=== PATIENT | male | born 1960 | race Caucasian/White ===

== ENCOUNTER 2017-03-12 12:07 | Emergency (ER) | payer SELFPAY ==
--- NOTE | 2017-03-12 13:00 | Emergency Department Record ---
History of Present Illness - General Chief complaint: Head Injury Stated complaint: INJURY TO TOP OF HEAD HIT A PIPE VENT Time Seen by Provider: 03/12/17 13:00 Source: Patient Mode of Arrival: Ambulatory Limitations: No limitations Travel/Exposure to [facility] Within 21 Days of Symptoms: No - History of Present Illness Initial comments: The patient is here due to persistent head and neck pain since hitting his head on a pipe at work a week ago. He believes he did hit it very hard and since has had quite a severe headache and diffuse neck pain. The patient denies any visual changes, balance issues or weakness. He has been working and driving since the injury with no difficulty and taking Tylenol for pain. MD Complaint: Head pain Onset/Timin -: Days(s) Mechanism of Injury: Work related injury Location: Occipital Loss of Consciousness: No Previous Trauma to this Area: No Place: Work Radiation: Neck Severity: Moderate Severity scale (1-10): 8 Quality: Other Consistency: Constant, Getting worse Other Injuries: None Associated Symptoms: Neck pain - Related Data Previous Rx's Medication Instructions Recorded Cephalexin [Keflex] 500 mg PO QID #20 cap 01/17/15 Naproxen [Naprosyn] 500 mg PO BID #14 tablet. 03/12/17 Allergies/Adverse reactions: Allergies Allergy/AdvReac Type Severity Reaction Status Date / Time No Known Drug Allergies Allergy Verified 01/17/15 11:28 Travel Screening - Travel/Exposure Within Last 30 Days Have you traveled within the last 30 days?: No - Travel/Exposure Within Last Year Have you traveled outside the [place] in the last year?: No - Additonal Travel Details Have you been exposed to anyone with a communicable illness?: No Review of Systems Constitutional: Denies: Chills, Fever Eyes: Denies: Eye discharge ENT: Denies: Congestion Respiratory: Denies: Cough, Dyspnea Past Medical History - SOCIAL HISTORY Smoking Status: Former smoker Alcohol Use: None Drug Use: None - RESPIRATORY Hx Respiratory Disorders: No - CARDIOVASCULAR Hx Cardio Disorders: No - NEURO Hx Neuro Disorders: No - GI Hx GI Disorders: No - Hx Genitourinary Disorders: No - ENDOCRINE Hx Endocrine Disorders: No - MUSCULOSKELETAL Hx Musculoskeletal Disorders: No - PSYCH Hx Psych Problems: No - HEMATOLOGY/ONCOLOGY Hx Hematology/Oncology Disorders: No Family Medical History Any Significant Family History?: No Physical Exam - General General Appearance: Alert, Oriented x3, Cooperative, No acute distress - Head Head exam: Normocephalic. negative: Atraumatic, Normal inspection (There is a healing abrasion to the top of the head.) - Eye Eye exam: Normal appearance, PERRL - ENT ENT exam: Normal exam, Mucous membranes moist, Normal external ear exam, Normal orophraynx, TM's normal bilaterally Throat exam: Normal inspection. negative: Tonsillar erythema, Tonsillar exudate - Neck Neck exam: Normal inspection, Full ROM. negative: Tenderness - Respiratory Respiratory exam: Normal lung sounds bilaterally. negative: Respiratory distress - Cardiovascular Cardiovascular Exam: Regular rate, Normal rhythm, Normal heart sounds - GI/Abdominal GI/Abdominal exam: Soft, Normal bowel sounds. negative: Tenderness - Extremities Extremities exam: Normal inspection, Full ROM, Normal capillary refill. negative: Tenderness - Neurological Neurological exam: Alert, Normal gait, Oriented X3, Other (Neg Drift and [place].). negative: Abnormal gait, Altered, Motor sensory deficit Course Vital Signs 03/12/17 12:43 Temperature 97.8 F Pulse Rate 91 H Respiratory 16 Rate Blood Pressure 145/98 Pulse Ox 95 - Reevaluation(s) Reevaluation #1: The patient is doing well. He again denies any arm or leg numbness, tingling or weakness. He still has the GONG but does not want anything for pain. I did explain the xray results to him and the need for F/U with his PCP. 03/12/17 14:06 Medical Decision Making - Data Complexity MDM Data: X-Ray Ordered and/or Reviewed - Radiology Data Radiology results: Report reviewed (Head CT: Neg Cervical CT: DJD, Mod central canal stenosis C3-4. ) Disposition Disposition: Discharge Clinical Impression: Concussion Qualifiers: Encounter type: initial encounter Loss of consciousness presence/duration: without LOC Qualified Code(s): S06.0X0A - Concussion without loss of consciousness, initial encounter Disposition: Home, Self-Care Condition: (1) Good Instructions: Concussion (ED) Additional Instructions: Please take the Naprosyn for pain and F/U with your PCP early next week to recheck the Concussion and the neck degenerative dz. Please return to the ER for any increased pain, fever, confusion, weakness, balance issues or vomiting. Prescriptions: Naproxen [Naprosyn] 500 mg PO BID #14 tablet.dr Forms: Patient Portal Access Time of Disposition: 14:09 Quality - Quality Measures Quality Measures: N/A - Blood Pressure Screening View Details: Yes Does Patient Have Any of the Following: No Blood Pressure Classification: Pre-Hypertensive BP Reading Systolic Measurement: 125 Diastolic Measurement: 89 Screening for High Blood Pressure: < Pre-Hypertensive BP, F/U Documented > [ G8950] Pre-Hypertensive Follow-up Interventions: Referral to alternative/primary care provider.
--- NOTE | 2017-03-14 12:10 | CT SCAN REPORT ---
EXAM: CT SCAN HEAD WO CONTRAST HISTORY: STRUCK ON TOP OF THE HEAD, WORSENING HEADACHE FOR ONE WEEK. NO LOSS OF CONSCIOUSNESS. COMPARISON: Head CT 10/01/09. ENCOUNTER: Initial. TECHNIQUE: Contiguous axial images from the cerebral convexities to the foramen magnum were obtained without contrast. FINDINGS: Brain volume is normal. No acute intracranial hemorrhage, mass effect , or midline shift. No CT evidence of acute infarct. Cavum septum pellucidum, basal cisterns, and sulci are normal. No skull fracture. Soft tissues and paranasal sinuses are unremarkable. IMPRESSION: NO ACUTE INTRACRANIAL PROCESS. JOB NUMBER: [id number] [facility]
--- NOTE | 2017-03-14 12:21 | CT SCAN REPORT ---
EXAM: CT SCAN CERVICAL SPINE WO CONTRAST HISTORY: STUCK TOP OF HEAD ONE WEEK AGO, CHRONIC NECK PAIN. COMPARISON: None. TECHNIQUE: Contiguous axial images from the skull base to the T3 level were obtained without contrast. Sagittal and coronal two-dimensional reformatted images were obtained for better anatomic delineation. FINDINGS: Anatomic alignment of the cervical spine. C1-C2 articulation appears appropriate and the odontoid is intact. No fracture or subluxation. Moderate degenerative disc disease at C5-6 manifested by loss of stature and endplate osteophytes. Mild disc disease of remaining levels. C2-3: Unremarkable. C3-4: There is a central disc extrusion measuring 4 mm in AP dimension, by 7 mm broad extending 7 mm cephalad to the disc level. There is moderate central canal stenosis with the thecal sac measuring 7 mm in AP dimension. Mild right and moderate to severe left neural foraminal stenosis. C4-5: Borderline central canal stenosis with the thecal sac measuring 10 mm in AP dimension. No neural foraminal stenosis. C5-6: Mild central canal stenosis with the thecal sac measuring 9 mm in AP dimension. There is uncovertebral joint hypertrophy with moderate right and moderate to severe left neural foraminal stenosis. C6-7: No central canal stenosis. Facet arthropathy. No neural foraminal stenosis. C7-T1: Unremarkable. Soft tissues of the cervical region are unremarkable. The lung apices are clear. IMPRESSION: 1. NO ACUTE FRACTURE OR SUBLUXATION OF THE CERVICAL SPINE. 2. PROBABLE DEVELOPMENTAL NARROWING OF THE MID CERVICAL SPINAL CANAL WITH SUPERIMPOSED DEGENERATIVE CHANGE. THERE APPEARS TO BE A DISC EXTRUSION EXTENDING 7 MM CEPHALAD TO THE DISC LEVEL PRODUCING MODERATE CENTRAL CANAL STENOSIS AT THIS LEVEL. 3. MILD CENTRAL CANAL STENOSIS AT C5-6. 4. VARYING DEGREES OF NEURAL FORAMINAL STENOSIS, ABOVE. JOB NUMBER: [id number] [facility]
== END 2017-03-12 14:27 | disposition home or self-care (01) ==
LOC: ER 12:07
DX: S06.0X0A Concussion without loss of consciousness, initial encounter (principal); R51 Headache; M54.2 Cervicalgia; W22.8XXA Striking against or struck by other objects, initial encounter; Y92.89 Other specified places as the place of occurrence of the external cause; Y99.0 Civilian activity done for income or pay
CPT/HCPCS: 70450; 72125; 99283; 99284

== ENCOUNTER 2017-05-20 15:40 | Emergency (ER) | payer BC, OTHER ==
[2017-05-20 16:25] LABS: BASO % 0.2 % (0-6); EOS % 2.8 % (0-6); GRAN % 64.2 % (47-80); HEMATOCRIT 48.1 % (42.0-52.0); HEMOGLOBIN 16.6 gm/dl (14.0-18.0); LYMPH % 22.9 % (16-45); MEAN CELL VOLUME 83.1 fl (81-97); MEAN CORPUSCULAR HGB CONC 34.5 g/dl (32-36); MEAN PLATELET VOLUME 9.4 fl (7.4-10.4); MONO % 9.9 % (0-9); PLATELET COUNT 224 K/uL (130-400); RED BLOOD COUNT 5.79 M/uL (4.40-5.70); RED CELL DISTRIBUTION WIDTH 13.9 % (11.5-14.5); WHITE BLOOD COUNT W/O DIFF 6.4 K/uL (4.2-12.2)
[2017-05-20 16:26] LABS: MEAN CORPUSCULAR HEMOGLOBIN 28.6 pg (27-33)
[2017-05-20 16:31] LABS: BLOOD UREA NITROGEN 13 mg/dL (6-20); CREATININE 0.7 mg/dL (0.7-1.2); EST GLOMERULAR FILTRATION RATE > 60 mL/min
--- NOTE | 2017-05-20 16:32 | Emergency Department Record ---
History of Present Illness - General Chief Complaint: Dizziness Stated Complaint: LIGHT HEADED,CONFUSION, THROAT FEELS TIGHT Time Seen by Provider: 05/20/17 16:08 Source: Patient Mode of Arrival: Ambulatory Limitations: No limitations - History of Present Illness Initial Comments: pt had a concussion a few months ago. since then he has had various symptoms including headaches and difficulty w memory. he has had recent neg dopplers and head and neck mri. he had a neg ct in oct when he had the injury. today he came in because he felt he was increasingly confused and was forgetful and felt he had some tingling in his r face. 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 Complaint: Dizziness, Lightheadedness -: Unknown Description: Lightheadedness History of Same: Yes History of Trauma: Yes Severity: Mild Improves With: Nothing Worsens With: Nothing Associated Symptoms: Denies other symptoms - Ed Coma Scale Eye Response: (4) Open spontaneously Motor Response: (6) Obeys commands Verbal Response: (5) Oriented [place] Total: 15 - Symptoms of Stroke Symptoms of stroke: Dizziness - Related Data Previous Rx's Medication Instructions Recorded Cephalexin [Keflex] 500 mg PO QID #20 cap 01/17/15 Naproxen [Naprosyn] 500 mg PO BID #14 tablet. 03/12/17 Allergies Allergy/AdvReac Type Severity Reaction Status Date / Time No Known Drug Allergies Allergy Verified 05/20/17 15:47 Travel Screening - Travel/Exposure Within Last 30 Days Have you traveled within the last 30 days?: No - Travel/Exposure Within Last Year Have you traveled outside the [place] in the last year?: Yes Location Detail:: [place] - Additonal Travel Details Have you been exposed to anyone with a communicable illness?: No - Travel Symptoms Symptom Screening: None Review of Systems Reviewed: No additional complaints except as noted below Constitutional: Reports: As per HPI. Denies: Chills, Fever, Malaise, Night sweats, Weakness, Weight change Eyes: Reports: As per HPI. Denies: Eye discharge, Eye pain, Photophobia, Vision change ENT: Reports: As per HPI. Denies: Congestion, Dental pain, Ear pain, Epistaxis , Hearing loss, Throat pain Respiratory: Reports: As per HPI. Denies: Cough, Dyspnea, Hemoptysis, Stridor, Wheezes Cardiovascular: Reports: As per HPI. Denies: Arrhythmia, Chest pain, Dyspnea on exertion, Edema, Murmurs, Orthopnea, Palpitations, Paroxysmal nocturnal dyspnea, Rheumatic Fever, Syncope Endocrine: Reports: As per HPI. Denies: Fatigue, Heat or cold intolerance, Polydipsia, Polyuria Gastrointestinal: Reports: As per HPI. Denies: Abdominal pain, Constipation, Diarrhea, Hematemesis, Hematochezia, Melena, Nausea, Vomiting Genitourinary: Reports: As per HPI. Denies: Dysuria, Frequency, Hematuria, Incontinence, Retention, Testicular pain, Testicular mass, Urgency Musculoskeletal: Reports: As per HPI. Denies: Arthralgia, Back pain, Gout, Joint swelling, Myalgia, Neck pain Skin: Reports: As per HPI. Denies: Bruising, Change in color, Change in hair/ nails, Lesions, Pruritus, Rash Neurological: Reports: As per HPI. Denies: Abnormal gait, Confusion, Headache, Numbness, Paresthesias, Seizure, Tingling, Tremors, Vertigo, Weakness Psychiatric: Reports: As per HPI. Denies: Anxiety, Auditory hallucinations, Depression, Homicidal thoughts, Suicidal thoughts, Visual hallucinations Hematological/Lymphatic: Reports: As per HPI. Denies: Anemia, Blood Clots, Easy bleeding, Easy bruising, Swollen glands Past Medical History - SOCIAL HISTORY Smoking Status: Former smoker Alcohol Use: None Drug Use: None - RESPIRATORY Hx Respiratory Disorders: No - CARDIOVASCULAR Hx Cardio Disorders: No - NEURO Hx Neuro Disorders: No - GI Hx GI Disorders: No - Hx Genitourinary Disorders: No - ENDOCRINE Hx Endocrine Disorders: No - MUSCULOSKELETAL Hx Musculoskeletal Disorders: No - PSYCH Hx Psych Problems: No - HEMATOLOGY/ONCOLOGY Hx Hematology/Oncology Disorders: No Family Medical History Any Significant Family History?: Yes Family Hx Comment (NOT TO BE USED IN PLACE OF ITEMS BELOW): Dad [employer] Hx Diabetes: Father Hx Heart Disease: Mother Physical Exam - General General Appearance: Alert, Oriented x3, Cooperative, Mild distress - Head Head exam: Normal inspection - Eye Eye exam: Normal appearance, PERRL, EOMI Pupils: Normal accommodation - ENT ENT exam: Normal exam, Mucous membranes moist, Normal external ear exam, Normal orophraynx Ear exam: Normal external inspection. negative: External canal tenderness Nasal Exam: Normal inspection. negative: Discharge, Sinus tenderness Mouth exam: Normal external inspection, Tongue normal Teeth exam: Normal inspection. negative: Dental caries Throat exam: Normal inspection. negative: Tonsillar erythema, Tonsillar exudate - Neck Neck exam: Normal inspection, Full ROM. negative: Tenderness - Respiratory Respiratory exam: Normal lung sounds bilaterally. negative: Respiratory distress - Cardiovascular Cardiovascular Exam: Regular rate, Normal rhythm, Normal heart sounds - GI/Abdominal GI/Abdominal exam: Soft, Normal bowel sounds. negative: Tenderness - Rectal Rectal exam: Deferred - exam: Deferred - Extremities Extremities exam: Normal inspection, Full ROM, Normal capillary refill. negative: Tenderness - Back Back exam: Reports: Normal inspection, Full ROM. Denies: Muscle spasm, Rash noted, Tenderness - Neurological Neurological exam: Alert, Normal gait, Oriented X3, Other (bells palsy on r side of face) - Psychiatric Psychiatric exam: Normal affect, Normal mood - Skin Skin exam: Dry, Intact, Normal color, Warm Course Vital Signs 05/20/17 15:47 Temperature 98.2 F Pulse Rate 94 H Respiratory 18 Rate Blood Pressure 161/104 Pulse Ox 97 Medical Decision Making - Lab Data Result diagrams: 05/20/17 16:10 05/20/17 16:10 Lab Results 05/20/17 Range/Units 16:10 WBC 6.4 (4.2-12.2) K/uL RBC 5.79 H (4.40-5.70) M/uL Hgb 16.6 (14.0-18.0) gm/dl Hct 48.1 (42.0-52.0) % MCV 83.1 (81-97) fl MCH 28.6 (27-33) pg MCHC 34.5 (32-36) g/dl RDW 13.9 (11.5-14.5) % Plt Count 224 (130-400) K/uL MPV 9.4 (7.4-10.4) fl Gran % 64.2 (47-80) % Lymphocytes % 22.9 (16-45) % Monocytes % 9.9 H (0-9) % Eosinophils % 2.8 (0-6) % Basophils % 0.2 (0-6) % Disposition Disposition: Discharge Clinical Impression: Postconcussive syndrome Disposition: Home, Self-Care Condition: (1) Good Instructions: Post Concussion Syndrome (ED) Additional Instructions: follow up with family doctor and with neurologist and concussion clinic. return sooner if worse Forms: Patient Portal Access Quality - Quality Measures Quality Measures: N/A - Blood Pressure Screening Does Patient Have Any of the Following: No Blood Pressure Classification: Hypertensive Reading Systolic Measurement: 161 Diastolic Measurement: 104 Screening for High Blood Pressure: < First Hypertensive BP, F/U Documented > [ G8950] First Hypertensive Follow-up Interventions: Follow-up with rescreen GT 1 day and LT 4 weeks.
[2017-05-20 16:34] LABS: GLUCOSE,RANDOM 108 mg/dL (74-109)
[2017-05-20 17:05] LABS: ERYTHROCYTE SEDIMENTATION RATE 2 mm/hr (0-20)
--- NOTE | 2017-05-21 07:59 | CT SCAN REPORT ---
EXAM: CT SCAN OF THE BRAIN WITHOUT CONTRAST HISTORY: STROKE LIKE SYMPTOMS. LIGHTHEADEDNESS AND CONFUSION. TECHNIQUE: Standard CT imaging of the brain was performed without contrast. Comparison: 03/12/17. Encounter: Not applicable. FINDINGS: The brain volume is normal. An incidental cavum septum pellucidum variant is present. The ventricles and subarachnoid spaces are otherwise normal. There is no mass, mass effect, intracranial hemorrhage, visible acute infarct, or abnormal extraaxial fluid. The skull is intact. The orbits, sinuses, and mastoids are normal. IMPRESSION: NEGATIVE NONCONTRAST HEAD CT. JOB [facility]BER: [id number] [facility]
--- NOTE | 2017-05-21 08:05 | CT ANGIOGRAM REPORT ---
EXAM: CT ANGIOGRAM OF THE BRAIN WITH CONTRAST AND WITH POST PROCESSING HISTORY: CONFUSION AND STROKE LIKE SYMPTOMS. LIGHTHEADEDNESS. HISTORY OF CONCUSSION IN MARCH. RIGHT SIDED HEAD AND FACIAL NUMBNESS. TECHNIQUE: Standard CT angiography of the brain was performed with post processing following the bolus administration of 100 ml of Omnipaque 350. Additional multiplanar maximum intensity projection reformatted images were performed on an independent workstation under concurrent supervision. Comparison: Previous MRI of the brain dated 04/08/[address] dated . FINDINGS: The intracranial internal carotid arteries are normal in caliber. The ICA bifurcations are normal as are the anterior and middle cerebral arteries. The anterior communicating artery and posterior communicating arteries are present and appear normal. There is persistent origin of the right posterior cerebral artery which fills mainly through the posterior communicating artery. This is an anatomic variant. The right P1 segment is hypoplastic. The vertebral basilar system and posterior cerebral arteries are otherwise normal. There is no vascular occlusion or intracranial vascular malformation. IMPRESSION: NORMAL CTA OF THE BRAIN. [facility]: [id number] [facility]
== END 2017-05-20 18:03 | disposition home or self-care (01) ==
LOC: ER 15:40
DX: F07.81 Postconcussional syndrome (principal); R42 Dizziness and giddiness; G44.319 Acute post-traumatic headache, not intractable; R41.0 Disorientation, unspecified
CPT/HCPCS: 99283; 99284; 85025; 85651; 80048; 70496; 70450; Q9967